=== PATIENT | female | born 1990 | race Caucasian/White ===

== ENCOUNTER 2018-08-24 16:26 | Emergency (ER) | payer OTHER, MEDICAID ==
[~2018-08-24] VITALS: Ht 157.5 cm; Wt 66.7 kg
[~2018-08-24 16:26] MED LIST: MECLIZINE HCL25 M1 PO; NOHOMEMEDICATIONS; NORCO 5-325 TA1 EACH PO
[2018-08-24] MEDS ORDERED: AMOXICILLIN 50500 MG PO (17:08)
[2018-08-24] MEDS ORDERED: TRAZODONE 150150 M1 PO (17:09)
[2018-08-24] MEDS ORDERED: MEDROL4 MG PO (17:09)
[2018-08-24] MEDS ORDERED: STOOL SOFTENER100 MG PO (17:10)
[2018-08-24] MEDS ORDERED: XANAX 0.5 MG0.5 MG PO (17:10)
[2018-08-24 18:09] LABS: ABSOLUTE EOSINOPHILS 0.1 thou/uL (0.0-0.7); ABSOLUTE LYMPHOCYTES 1.5 thou/uL (0.8-5.3); ABSOLUTE MONOCYTES 0.2 thou/uL (0.0-1.2); ABSOLUTE NEUTROPHILS 5.1 thou/uL (1.6-8.1); BASOPHILS 0.2 %; EOSINOPHILS 0.7 %; HEMATOCRIT 44.2 % (37.0-47.0); HEMOGLOBIN 14.9 gm/dL (12.0-15.0); LYMPHOCYTES 22.1 %; MCH 31.1 pg (26.0-34.0); MCHC 33.7 g/dL (28.0-37.0); MCV 92.4 fL (80.0-100.0); MONOCYTES 3.2 %; MPV 8.2 fl. (7.2-11.1); NUCLEATED RBCS 0 /100WBC; PLATELET COUNT* 220 thou/uL (150-400); POLYS 73.8 %; RBC 4.79 mil/uL (4.20-5.00); RDW-CV 13.4 % (10.5-14.5); WBC 6.9 thou/uL (4.0-11.0)
[2018-08-24 18:14] LABS: URINE BILIRUBIN NEGATIVE (Negative); URINE BLOOD NEGATIVE (Negative); URINE CLARITY CLEAR; URINE COLOR YELLOW; URINE GLUCOSE-RANDOM NEGATIVE (Negative); URINE KETONES NEGATIVE (Negative); URINE LEUKOCYTES-REFLEX 1+ (Negative); URINE NITRITE-REFLEX NEGATIVE (Negative); URINE PROTEIN NEGATIVE (Negative); URINE SPECIFIC GRAVITY <= 1.005 (1.005-1.030); URINE UROBILINOGEN 0.2 E.U./dl (0.2-1.0)
[2018-08-24 18:19] LABS: AMP/METHAMP Negative (Negative); BACTERIA-REFLEX None Seen /HPF (None Seen); BARBITURATES Negative (Negative); BENZODIAZEPINES POSITIVE (Negative); CASTS None Seen /LPF (None Seen); COCAINE Negative (Negative); CRYSTALS None Seen /LPF (None Seen); METHADONE Negative (Negative); OPIATES Negative (Negative); PCP Negative (Negative); SQUAMOUS 4-10 Moderate /LPF (0-3); THC Negative (Negative); URINE RBC None Seen /HPF (0-2); URINE WBC-REFLEX None Seen /HPF (0-5)
[2018-08-24] MEDS ORDERED: ZPAK PO (19:09)
[2018-08-24] MEDS ORDERED: PROAIR HFA8.5 GM INH (19:09)
[2018-08-24 19:23] LABS: CALCIUM 8.6 mg/dL (8.5-10.1); CREATININE 0.8 mg/dL (0.6-1.3); POTASSIUM 4.3 mmol/L (3.5-5.1)
[2018-08-24 19:28] LABS: ALBUMIN 3.5 g/dL (3.4-5.0); TOTAL BILIRUBIN 0.2 mg/dL (<0.1-1.0)
[2018-08-24 19:42] VITALS: BP 93/45
--- NOTE | 2018-08-25 11:32 | EKG ---
[place] [address] ELECTROCARDIOGRAM REPORT Name: DEUCE STRONG Room: [facility]#: [id number] Admission: 08/24/18 Attend Phys: Discharge: 08/24/18 Date of : [birth year] Report #: [id number] THIS REPORT FOR: //name// [facility] ED Test Date: 2018-08-24 Test Time: 17:24:17 Pat Name: DEUCE STRONG Department: Room: Gender: F [employer] Tender: Manuel DEL RIO : 1990 Requested By: Rere Mcdaniel Order Number: [id number] MD: Isaiah Jerez Measurements Intervals [place] Rate: 58 P: 8 MN: 210 QRS: 61 QRSD: 99 T: 28 QT: 428 QTc: 421 Interpretive Statements Sinus rhythm Prolonged MN interval No previous ECG available for comparison Electronically Signed On 08-25-2018 11:31:49 [employer] by Isaiah Jerez [email or web address] <ELECTRONICALLY SIGNED> By: Isaiah Jerez MD, [facility] 08/25/18 1131 1724 1724 Isaiah Jerez MD, FACC /EPI
== END 2018-08-24 19:25 | disposition home or self-care (01) ==
LOC: M.ERS 16:26
PROVIDERS: Physician Assistant
DX: R04.2 Hemoptysis (principal); F17.210 Nicotine dependence, cigarettes, uncomplicated; R42 Dizziness and giddiness

== ENCOUNTER 2021-01-05 10:09 | Emergency (ER) | payer OTHER ==
[~2021-01-05] VITALS: Ht 154.9 cm; Wt 74.8 kg
[~2021-01-05 10:09] MED LIST changes: +AMOXICILLIN 50500 MG PO; +MEDROL4 MG PO; +PROAIR HFA8.5 GM INH; +STOOL SOFTENER100 MG PO; +TRAZODONE 150150 M1 PO; +XANAX 0.5 MG0.5 MG PO; +ZPAK PO
[2021-01-05 11:24] LABS: CALCIUM 8.8 mg/dL (8.5-10.1); CREATININE 0.7 mg/dL (0.6-1.3); POTASSIUM 4.2 mmol/L (3.5-5.1)
[2021-01-05] MEDS ORDERED: AUGMENTIN 875-1 EACH PO ×2 (11:30→11:49)
[2021-01-05] MEDS ORDERED: ZOFRAN ODT4 MG DISSOLVE ×2 (11:30→11:49)
[2021-01-05] MEDS ORDERED: MECLIZINE HCL25 M1 PO ×2 (11:30→11:49)
[2021-01-05 11:54] VITALS: BP 89/42
== END 2021-01-05 11:55 | disposition home or self-care (01) ==
LOC: M.ERS 10:09
PROVIDERS: Emergency Medicine Emergency Medical Services
DX: H81.391 Other peripheral vertigo, right ear (principal); F17.210 Nicotine dependence, cigarettes, uncomplicated; Z90.710 Acquired absence of both cervix and uterus